=== PATIENT | female | born 1930 | race Caucasian/White ===

== ENCOUNTER 2016-08-09 14:49 | Inpatient (IN) ==
[2016-08-09 15:19] LABS: Basophils % 0.3 % (0.0-0.8); Eosinophils % 0.2 % (0.00-10.9); Hematocrit 35.8 VOL% (35.7-47.0); Hemoglobin 11.9 GM/DL (12.0-16.0); Immature Granulocytes % 0.5 %; Immature Granulocytes Absolute 0.03 #; Lymphocytes # 0.8 10*3/uL (1.4-4.0); Lymphocytes % 12.9 % (21.3-54.2); Mean Corpuscular HGB Conc 33.2 GM/DL (32-36); Mean Corpuscular Hemoglobin 30 PG (27-34); Mean Corpuscular Volume 90.2 FL (87-102); Mean Platelet Volume 9.5 FL (9.6-12.0); Monocytes # 0.2 10*3/uL (0.11-0.8); Monocytes % 3.5 % (1.7-12.7); Neutrophils % 82.6 % (38.7-73.9); Platelet Count 222 T/CUMM (130-400); Red Blood Count 3.97 MC/CUMM (3.8-5.5); Red Cell Distribution Width 16.8 % (9.3-17.3)
--- NOTE | 2016-08-09 15:34 | CT Report ---
Referring physician: Jessica Exam: CT brain without contrast Date: 08/09/2016 Comparison: None Reason: Alteration of consciousness Technique: Axial images of the head were obtained without the use of contrast. Total DLP was 942.40 mGy*cm. Findings: No hydrocephalus or midline shift is present. There is no evidence of an acute infarction, recent intracranial hemorrhage or abnormal mass effect. Diffuse atrophy and cerebral hypodensities. The osseous structures appear intact. Minimal mucosal thickening in the paranasal sinuses with fluid in the right mastoid air cells. Impression: No acute intracranial abnormality is identified. Diffuse atrophy and significant microvascular disease which could obscure age indeterminate ischemic infarction. Minimal sinusitis with nonspecific fluid in right mastoid air cells. The CT exam was performed using one or more of the following dose reduction techniques: Automated exposure control and adjustment of the mA and/or kV according to patient size. PROCEDURE INTERPRETED AT [facility] DEPARTMENT OF RADIOLOGY Final Report Signed by: Dr. Ariana Tesfaye
[2016-08-09 15:44] LABS: Alanine Aminotransferase 219 U/L (13-56); Albumin 3.6 G/DL (3.4-5.0); Alkaline Phosphatase 54 U/L (45-117); Aspartate Amino Transferase 128 U/L (0-37); Blood Urea Nitrogen 57 MG/DL (7-18); Calcium 8.5 MG/DL (8.5-10.1); Glucose 90 MG/DL (74-106); Magnesium 2.5 MG/DL (1.8-2.4); Osmolality,Calculated 290.7 MOS/KG (273-304); Potassium 4.1 MMOL/L (3.5-5.1); Sodium 138 MMOL/L (136-145); Total Protein 8.4 G/DL (6.4-8.3); Troponin I Only < 0.015 NG/ML (0.00-0.045)
--- NOTE | 2016-08-09 15:46 | XRay Report ---
XR chest 1V Indication: Altered mental status Comparison: Chest x-ray dated January 23, 2014 Technique: Single frontal view of the chest. Findings: The cardiomediastinal silhouette is stable in configuration. Heart appears mildly prominent. Chronic/emphysematous change of the lungs suggested. Diffuse osteopenia. Plate and screw fixation of proximal left humerus. Vertebroplasty change near the thoracic/lumbar junction. S-shaped curvature of the spine. IMPRESSION: As above. PROCEDURE INTERPRETED AT [facility] DEPARTMENT OF RADIOLOGY Final Report Signed by: Dr Charli Cantor
[2016-08-09 15:54] LABS: INR 1.1; PT Patient Result 12.2 SECS
[2016-08-09 16:05] LABS: Apearance,Urine Slightly Hazy (Clear); Bilirubin,Urine Negative (Negative); Blood, Urine Large mg/dL (Negative); Glucose,Urine (UA) Negative (Negative); Hyaline Casts,Urine 2 /LPF (0-3); Ketones,Urine 5 mg/dL (Negative); Mucus,Urine Occasional /LPF (Occasional); Nitrite,Urine Negative (Negative); Protein,Urine 30 MG/DL; RBC,Urine 497 /HPF (0-4); Renal Epithelial Cells,Urine Occasional /HPF (<1); Squamous Epithelial Cell,Urine Occasional /HPF (0-10); Urine Color Yellow (Yellow); Urine Specific Gravity 1.016 (1.001-1.035); Urine Urobilinogen < 2.0 EU/DL (0.2-1.0); WBC,Urine 8 /HPF (0-6)
[2016-08-09] MEDS ORDERED: SODIUM CHLORIDE 0.9% 500 ML IV STA (17:04)
--- NOTE | 2016-08-09 17:08 | Emergency Department Note ---
Krystin Woodard Rolonda, am scribing for, and in the presence of, Emory Lopez MD 16:00. Jessica Woodard Phillip K, MD, personally performed the services described in this documentation, ascribed by Naresh Mcclelland in my presence, and it is both accurate and complete [id number] . Arrival - Arrival Chief Complaint: Altered Mental Status Stated Complaint: fell yesterday/confusion/staggering/pain in back ED Nursing Triage Note: Family reports pt has been having confusion, unsteady gait, dizziness, and fall yesterday. Mode of Arrival: Wheelchair Limitations: No Limitations Source: Patient, Family (grandaughter), Old Records Reviewed, RN Notes Reviewed - History of Present Illness HPI Narrative: Pt is an 83 y/o female who was brought to the ED via wheelchair by her grandaughter for further evaluation of AMS with an onset of x1 day. Granddaughter stated that pt has "been out of it and confused" since she fell x1 day ago. She states that pt fell onto the cement after losing her balance. Granddaughter has no knowledge if pt had LOC due to hitting her head after the fall because no one was around. She states that she was going to transport pt to ED yesterday but did not because the home health nurse had arrived. Granddaughter took pt to Urologist who works under Dr. Hurd today but was transferred here. No other complaint/pain in ED. Onset (ago): day(s) Consistency: constant Severity: mild Severity scale (1-10): 3 Allergies/Adverse Reactions: Allergies Allergy/AdvReac Type Severity Reaction Status Date / Time No Known Allergies Allergy Verified 08/09/16 14:54 Review of System - Review of System 12 point system: reviewed and no additional remarkable complaints except as stated - Review of System Eyes: Absent: pain Respiratory: Absent: cough, respiratory distress Cardiovascular: Absent: chest pain Gastrointestinal: Absent: abdominal pain, nausea, vomiting Musculoskeletal: Absent: arm pain, leg pain, neck pain Neurological: Absent: headache Medical,Surgical,& Family Hx - Medical History Cardio: History of: Cardiac Dysrhythmia (Tachycardia), Hypertension Respiratory: History of: COPD Musculoskeletal: History of: Musculoskeletal Problems (left shoulder fx) Hematology: History of: Anemia - Surgical History HEENT Surgeries: Surgical HX of: Eye Surgery - Social History Smoking Status: Never smoker Exam Vital Signs: Vital Signs Temperature 98.4 F 08/09/16 14:51 Pulse Rate 81 08/09/16 16:07 Respiratory Rate 18 08/09/16 16:07 Blood Pressure 183/60 08/09/16 16:07 O2 Sat by Pulse Oximetry 99 08/09/16 14:51 - General General appearance: alert, in no apparent distress - Head Head exam: Present: atraumatic, normocephalic - Eye Eye exam: Present: normal appearance, PERRL, EOMI - ENT ENT exam: Present: mucous membranes moist. Absent: mucous membranes dry - Neck Neck exam: Present: full ROM. Absent: tenderness - Chest Chest inspection: Present: symmetric chest wall rise. Absent: tenderness - Respiratory Respiratory exam: Present: normal lung sounds bilaterally. Absent: rales - Cardiovascular Cardiovascular exam: Present: regular rate, normal rhythm, normal heart sounds. Absent: bradycardia - Abdominal Exam Abdominal exam: Present: soft, normal bowel sounds. Absent: tenderness - Extremities Exam Extremities exam: Present: full ROM. Absent: tenderness - Back Exam Back exam: Present: full ROM. Absent: tenderness - Neurological Exam Neurological exam: Present: alert, oriented X3, CN II-XII intact - Psychiatric Psychiatric exam: Present: normal affect, normal mood - Skin Skin exam: Present: warm, dry, intact, normal color. Absent: rash Course Course Narrative: Patient discussed with the hospitalist. Results - Labs CBC & BMP: 08/09/16 15:04 08/09/16 15:04 Lab Results: I have reviewed the patients labs Labs: Laboratory Tests 08/09/16 08/09/16 08/09/16 15:04 15:04 15:04 WBC 6.0 RBC 3.97 Hgb 11.9 L Hct 35.8 Plt Count 222 MPV 9.5 L Neut % (Auto) 82.6 H Lymph % (Auto) 12.9 L Lymph # (Auto) 0.8 L INR 1.1 PT Patient/Control Mix 12.2 Sodium 138 Potassium 4.1 Chloride 113 H Carbon Dioxide 17 L BUN 57 H Creatinine 1.60 H GFR Calculation 24 BUN/Creatinine Ratio 35.00 H Magnesium 2.5 H AST 128 H ALT 219 H Total Protein 8.4 H Globulin 4.8 H Albumin/Globulin Ratio 0.7 L Laboratory Tests 08/09/16 15:44 Urine pH 5.0 Ur Specific [place] 1.016 Urine Protein 30 Urine Glucose (UA) Negative Urine Ketones 5 Urine Blood Large Urine Nitrate Negative Urine Bilirubin Negative Urine Urobilinogen < 2.0 H Urine Leukocytes Negative Urine RBC 497 Urine WBC 8 Ur Squamous Epith Cells Occasional Ur Renal Epithelial Cell Occasional Hyaline Casts 2 Urine Mucus Occasional Urine Yeast (Budding) Occasional Ur Culture Indicated? Results to follow - EKG EKG results: interpreted by ERMTevin, sinus rhythm (Old anterior septal VA) - Diagnostic Findings Procedure: Chest x-ray: report reviewed by me (COPD), CT: report reviewed by me (Head/Brain: No acute intracranial abnormality is identified. Diffuse atrophy and significant microvascular disease which could obscure age indeterminate ischemic infarction. Minimal sinusitis with nonspecific fluid in right mastoid air cells.), X-ray: report reviewed by me (Chest: The carsiomediastinal silhouette is stable in configuration. Heart appears midly prominent. Chronic/ emphy sematous change of the lungs suggested. Diffuse osteopenia. Plate and screw fixation of proximal left humerus. Vertebroplasty change near the thoracic /lumbar junction. S-shaped curvature of the spine.) Disposition Clinical Impression: Dehydration, Multiple falls, Confusion, Probable dementia Case discussed with: patient, patient's family Disposition: Still a Patient Condition: Guarded Additional Instructions: Admit to the hospitalist.
--- NOTE | 2016-08-09 18:12 | Hospitalist History & Physical ---
Assessment and Plan (1) Confusion Status: Acute Assessment and plan: The family reports that confusion is not the patient's baseline. They report that the onset of confusion started immediately after the fall. CT of the brain was essentially unremarkable; however it did note a possible remote infarction. Urinalysis was essentially negative for the present of infection. We will monitor this patient closely. We will review her medications for any possible agents that may attribute to confusion. Current Visit: Yes (2) Dehydration Status: Acute Assessment and plan: The patient reports a decrease in p.o. intake. She reports that she has been able to drink but not a whole lot. BUN was noted at 57 and creatinine at 1.60 we will gently rehydrate to replace the volume deficit. Current Visit: Yes (3) Multiple falls Status: Acute Assessment and plan: Family reports a increase in falls in recent weeks. I am concerned regarding the patient's therapy. Not sure what her actual mental status baseline is. We will consult physical therapy and Occupational Therapy to evaluate. The patient may benefit from rehab placement at discharge. Current Visit: Yes History of Present Illness Chief complaint: Altered mental status History of present illness: This is a very pleasant 85-year-old female that presented to the ED at [facility] this afternoon for the evaluation of altered mental status. The patient has a very impressive medical history significant for: Hypertension, chronic obstructive pulmonary disease, anemia, osteoporosis, left shoulder fracture and multiple falls. The patient reports surgical history significant for: Vertebroplasty and plate and screw fixation of the proximal left humerus. The patient is very hard of hearing. She is pleasantly confused. Her daughter is present at bedside she was service historian. Per daughter report, the patient has experienced a noted change in her mental status. They noticed the change initially on yesterday. Apparently, the patient sustained an unwitnessed fall. The daughter was unsure if the patient had an actual loss of consciousness, however they noted that the patient has been confused since the occurrence. They report that the patient was found on the semen after apparently losing her balance. They contemplated on bringing the patient to the ED on yesterday however the home health nurse arrived to their home in she evaluated the patient there. Today, the patient was seen by her urologist, evaluated, and advised to present to the ED for further evaluation. The patient was assessed at the time of ED presentation. The patient's blood pressure was grossly elevated at 183/60. Labs were obtained; complete blood cell count reported her WBCs at 6.0, hemoglobin 11.9, hematocrit 35.8, and platelet count of 222. Coagulation panel reported her INR at 1.1 and PT of 12.2 chemistry panel reported her sodium at 138, potassium is 4.1, chloride 113 , carbon dioxide is 17, BUN of 57, creatinine at 1.60 , glucose at 90, magnesium at 2.5, AST 128, ALT at 219, alkaline phosphatase of 54, and albumin at 3.6. Cardiac enzymes reported a troponin at less than 0.015. Urinalysis reported a large amount of blood and urine urobilinogen at less than 2.0 and negative for leukocytes. Chest x-ray reported chronic/emphysematous changes of the lungs, diffuse osteopenia, S shaped curvature of the spine, plate and screw fixation of the proximal left humerus, vertebral plasty change near the thoracic lumbar junction. CT head/brain reported no acute intracranial abnormality, diffuse atrophy and significant microvascular disease which could obscure age indeterminate ischemic infarction, mild sinusitis with nonspecific fluid in the right mastoid air cells. After brief discussion with both Dr. Lopez and Dr. Guadarrama, the patient will be admitted to the hospitalist services for continuation of care Allergies Allergy/AdvReac Type Severity Reaction Status Date / Time No Known Allergies Allergy Verified 08/09/16 14:54 Medical,Surgical,& Family Hx - Medical History Cardio: History of: Cardiac Dysrhythmia (Tachycardia), Hypertension Respiratory: History of: COPD Musculoskeletal: History of: Musculoskeletal Problems (left shoulder fx) Hematology: History of: Anemia - Surgical History HEENT Surgeries: Surgical HX of: Eye Surgery - Social History Smoking Status: Never smoker 12 point system: reviewed and no additional remarkable complaints except as stated Exam - Constitutional Vitals: Period Temp Pulse Resp BP Sys/Barrientos Pulse Ox Last 24 Hr 98.4 F 81-81 16-18 183-183/60-60 99 General appearance: normal weight, no acute distress - Head Head exam: Present: normal inspection, normocephalic. Absent: atraumatic - Eye Eye exam: Present: EOMI, conjunctival injection Pupils: Present: ONOFRE, normal accommodation - ENT ENT exam: Present: normal exam, normal external ear exam, normal oropharynx - Neck Neck exam: Present: normal inspection - Respiratory Respiratory exam: Present: clear to auscultation bilaterally. Absent: rales, rhonchi, stridor - Cardiovascular Cardiovascular exam: Present: regular rate and rhythm. Absent: carotid bruit, diastolic murmur, gallop, tachycardia - GI/Abdominal GI/Abdominal exam: Present: normal bowel sounds, soft - Extremities Exam Extremities exam: Present: normal inspection, normal capillary refill, full ROM. Absent: edema - Back Exam Back exam: Present: normal inspection - Neurological Exam Neurological exam: Present: alert, altered - Psychiatric Psychiatric exam: Present: normal affect, normal mood - Skin Skin exam: Present: normal color, warm, dry Results - Labs CBC & BMP: 08/09/16 15:04 08/09/16 15:04 Lab Results: I have reviewed the past 24 hour labs
[2016-08-09] MEDS ORDERED: ONDANSETRON 4 MG/2 ML VIAL IV PRN (18:55)
[2016-08-09] MEDS: DOCUSATE SODIUM 100 MG CAPSULE PO SCH (21:14)
[2016-08-09] MEDS: ACETAMINOPHEN 325 MG TABLET PO PRN (21:14)
[2016-08-09] MEDS: ENOXAPARIN 30 MG/0.3 ML SYRINGE SUBCUT SCH (21:15)
[2016-08-10] MEDS: ACETAMINOPHEN 325 MG TABLET PO PRN ×2 (02:28→20:57)
[2016-08-10 05:49] LABS: Basophils % 0.2 % (0.0-0.8); Eosinophils % 0.4 % (0.00-10.9); Hematocrit 33.1 VOL% (35.7-47.0); Immature Granulocytes % 1.1 %; Immature Granulocytes Absolute 0.05 #; Lymphocytes % 21.7 % (21.3-54.2); Mean Corpuscular HGB Conc 33.2 GM/DL (32-36); Mean Corpuscular Hemoglobin 30 PG (27-34); Mean Corpuscular Volume 90.7 FL (87-102); Mean Platelet Volume 9.6 FL (9.6-12.0); Monocytes # 0.3 10*3/uL (0.11-0.8); Monocytes % 5.6 % (1.7-12.7); Neutrophils # 3.3 10*3/uL (1.4-7.4); Platelet Count 191 T/CUMM (130-400); Red Blood Count 3.65 MC/CUMM (3.8-5.5); Red Cell Distribution Width 16.7 % (9.3-17.3); White Blood Count 4.6 T/CUMM (4-12)
--- NOTE | 2016-08-10 05:58 | EKG Report ---
Stationary ECG Study [facility] ER Test Date: 08/09/2016 4:59:02 PM Pat Name: JB MOORE Department: Room: 333 Gender: F Sole Trimmer: : [id number] Requested by: Emory Self Order Number: [id number] Reading MD: SANTO RAMOS Intervals Burna Rate: 82 P: 82 IN: 195 QRS: 26 QRSD: 106 T: 83 QT: 380 QTc: 418 Interpretive Statements SINUS RHYTHM ANTEROSEPTAL MYOCARDIAL INFARCTION, OF INDETERMINATE AGE Electronically Signed On 08-10-16 17:38:25 CDT by SANTO RAMOS [email or web address]
[2016-08-10 06:33] LABS: Alanine Aminotransferase 172 U/L (13-56); Albumin 2.9 G/DL (3.4-5.0); Alkaline Phosphatase 45 U/L (45-117); Aspartate Amino Transferase 88 U/L (0-37); Bilirubin,Total < 0.39 MG/DL (0.2-1.0); Blood Urea Nitrogen 37 MG/DL (7-18); Calcium 7.9 MG/DL (8.5-10.1); Glucose 95 MG/DL (74-106); Magnesium 2.2 MG/DL (1.8-2.4); Potassium 3.9 MMOL/L (3.5-5.1); Sodium 143 MMOL/L (136-145); Total Protein 7.2 G/DL (6.4-8.3)
[2016-08-10] MEDS: SODIUM CHLORIDE 0.9% 1,000 ML IV SCH ×2 (06:48→06:49)
[2016-08-10 06:50] LABS: Blood Urea Nitrogen 39 MG/DL (7-18); Glucose 96 MG/DL (74-106); Magnesium 2.3 MG/DL (1.8-2.4); Osmolality,Calculated 294.8 MOS/KG (273-304); Potassium 3.9 MMOL/L (3.5-5.1); Sodium 144 MMOL/L (136-145); Troponin I Only < 0.015 NG/ML (0.00-0.045)
[2016-08-10] MEDS: PANTOPRAZOLE 40 MG TABLET PO SCH (09:13)
[2016-08-10] MEDS: DOCUSATE SODIUM 100 MG CAPSULE PO SCH ×2 (09:13→20:57)
--- NOTE | 2016-08-10 13:38 | Hospitalist Progress Note ---
Assessment and Plan - Time spent with patient Time spent with patient: Greater than 30 minutes (1) Confusion Status: Acute Assessment and plan: Appears to be at baseline. No evidence of infection anywhere. We will obtain an MRI of her brain, carotid ultrasound and echocardiogram. Neurology was consulted. Patient will have to remain hospitalized until this is performed. Current Visit: Yes (2) Acute kidney injury Status: Acute Assessment and plan: Resolved. Current Visit: Yes (3) Multiple falls Status: Acute Assessment and plan: PT OT social work. Current Visit: Yes Hospitalist: Subjective Interval history: Patient is sitting up lucid and eating. She appears to be completely at baseline. She states she feels fine and there is nothing wrong. She is pleasant and laughing. Exam - Constitutional Vitals: Period Temp Pulse Resp BP Sys/Barrientos Pulse Ox Last 24 Hr 97.9 F-99.4 F 76-90 16-20 136-183/60-79 95-99 General appearance: no acute distress - Head Head exam: Present: normocephalic, atraumatic - Eye Eye exam: Present: EOMI Pupils: Present: ONOFRE - ENT ENT exam: Present: normal exam - Neck Neck exam: Present: normal inspection - Respiratory Respiratory exam: Present: clear to auscultation bilaterally. Absent: rhonchi, wheezes - Cardiovascular Cardiovascular exam: Present: regular rate and rhythm. Absent: gallop, rubs, systolic murmur - GI/Abdominal GI/Abdominal exam: Present: normal bowel sounds, soft. Absent: distended, firm , guarding, tenderness, rebound - Extremities Exam Extremities exam: Present: normal inspection. Absent: calf tenderness, edema Results - Labs CBC & BMP: 08/10/16 05:35 08/10/16 05:35 Lab Results: I have reviewed the past 24 hour labs
--- NOTE | 2016-08-10 14:57 | Ultrasound Report ---
Exam: Carotid ultrasound Date: 08/10/2016 Comparison: None Technique: Duplex scans of the carotid and vertebral arteries using B-mode/Nava scale imaging and Doppler spectral analysis and color flow. Reason: Alteration of consciousness Findings: The right ICA measures 4.1 mm in diameter and the left ICA measures 4.9 mm in diameter. Color-flow documented in the visualized arteries. The peak systolic velocities are as follows: Right CCA: 52.0 cm/s Right ICA: 74.7 cm/s Right ECA: 76.7 cm/s Left CCA: 76.8 cm/s Left ICA: 91.8 cm/s Left ECA: 97.6 cm/s The peak systolic ICA/CCA velocity ratios are as follows: 1.4 on the right and 1.2 on the left. Antegrade flow is present in both vertebral arteries. Impression:[Less than 50% stenosis in both internal carotid arteries with heterogeneous plaque formation. Antegrade flow in both vertebral arteries.] The Society of Radiologists in Ultrasound consensus conference criteria was used. The Ultrasound images were captured and stored. PROCEDURE INTERPRETED AT [facility] DEPARTMENT OF RADIOLOGY Final Report Signed by: Dr. Ariana Tesfaye
--- NOTE | 2016-08-10 15:22 | ECHO Report ---
Sri Steward Exam Date: 08/10/2016 14:09 Referring Physician: Technologist: Ashley Mason Age: 85 Ht (in): 65 Wt (lb): 88 Gender: F Exam Location: [facility] Echo Indications: anemia, HTN, COPD, confusion, dehydration, multi falls, mental status, Hx. cardiac dysrhythmias BP: 153 / 74 HR: 78 Rhythm: Sinus Technical Quality: Good IMPRESSIONS EF 55-60 %. Grade I/IV diastolic dysfunction (abnormal relaxation filling pattern), normal to mildly elevated filling pressures. Normal right ventricular size. The right atrium is mildly enlarged. Moderately increased left atrial size. Mitral valve sclerosis. Mild mitral valve regurgitation. Aortic valve sclerosis. Mild aortic valve regurgitation. Moderate tricuspid valve regurgitation. PAP45 mmHG. Morphologically normal pulmonic valve. No pericardial effusion. Normal size aortic root and proximal ascending aorta .No LV or LA clot seen. MEASUREMENTS (Male / Female) Normal Values 2D ECHO LV Diastolic Diameter PLAX 3.9 cm 4.2 - 5.9 / 3.9 - 5.3 cm LV Systolic Diameter PLAX 1.9 cm LV Fractional Shortening PLAX 51.7 % IVS Diastolic Thickness 1.2 cm 0.6 - 1.0 / 0.6 - 0.9 cm LVPW Diastolic Thickness 0.9 cm 0.6 - 1.0 / 0.6 - 0.9 cm RV Internal Dim ED PLAX 2.6 cm Aortic Root Diameter 2.6 cm LA Systolic Diameter LX 3.0 cm 3.0 - 4.0 / 2.7 - 3.8 cm DOPPLER TR Peak Velocity 292.0 cm/s TR Peak Gradient 34.1 mmHg FINDINGS Left Ventricle EF 55-60 %. Grade I/IV diastolic dysfunction (abnormal relaxation filling pattern), normal to mildly elevated filling pressures. Right Ventricle Normal right ventricular size. Right Atrium The right atrium is mildly enlarged. Left Atrium Moderately increased left atrial size. Mitral Valve Mitral valve sclerosis. Mild mitral valve regurgitation. Aortic Valve Aortic valve sclerosis. Mild aortic valve regurgitation. Tricuspid Valve Morphologically normal tricuspid valve. Moderate tricuspid valve regurgitation. PAP45 mmHG. Pulmonic Valve Morphologically normal pulmonic valve. Pericardium No pericardial effusion. Aorta Normal size aortic root and proximal ascending aorta. Antwon Ghotra (Electronically Signed) Final Date: 10 August 2016 15:21
--- NOTE | 2016-08-10 15:30 | Neurology Consult Note ---
History of Present Illness History of present illness: 85-year-old right-handed white lady with past medical history significant for hypertension, COPD, anemia, osteoporosis, left shoulder fracture and multiple falls presented to the ED at [facility] yesterday afternoon for the evaluation of altered mental status. The patient had Vertebroplasty and plate and screw fixation of the proximal left humerus in the past. The patient is very hard of hearing. Vision is not a very good historian. History basically obtained from the chart. Per chart and from report, the patient has experienced a noted change in her mental status. They noticed the change initially on yesterday. Apparently, the patient sustained an unwitnessed fall. The daughter was unsure if the patient had an actual loss of consciousness, however they noted that the patient has been confused since the occurrence. CT head/brain reported no acute intracranial abnormality, diffuse atrophy and significant microvascular disease. Carotid Dopplers is unremarkable. Echocardiogram looks okay. Ejection fraction is 55-60%. Allergies Allergy/AdvReac Type Severity Reaction Status Date / Time No Known Allergies Allergy Verified 08/09/16 14:54 ROS unobtainable: due to mental status Medical,Surgical,& Family Hx - Medical History Cardio: History of: Cardiac Dysrhythmia (Tachycardia), Hypertension Respiratory: History of: COPD Musculoskeletal: History of: Musculoskeletal Problems (left shoulder fx) Hematology: History of: Anemia - Surgical History HEENT Surgeries: Surgical HX of: Eye Surgery - Social History Smoking Status: Never smoker Frequency of Alcohol Use: None Type of Drug Use: None Exam - Constitutional Vitals: Period Temp Pulse Resp BP Sys/Barrientos Pulse Ox Last 24 Hr 97.9 F-99.4 F 76-90 16-20 136-183/60-79 95-98 Exam: GENERAL: Patient is in no acute distress. NECK: Neck is supple. There is no JVD. No carotid bruits present. No thyroid masses. CVS: First and second heart sounds are normal. There is no S3 present. Regular rate and rhythm. RESPIRATORY: Lungs are clear to auscultation without any rales or rhonchi. ABDOMEN: Soft and non-tender. Bowel sounds are present. There is no hepatosplenomegaly. EXT: There is no palpable edema. Peripheral pulses are present. Skin: No rashes Central Nervous system: General: Alert, awake Speech: Fluent Comprehension: Intact and normal Facial expressions: Normal Cranial Nerves: CN1/Olfactory: Normal CN II/ Optic: Normal, Visual [place] unreliable CN III, and : ONOFRE & EOMI CN V: Normal & intact CN VII: face is symmetric CNVIII: Very hard of hearing CN XI/X/XI/XII: Intact and Normal Motor: Bulk and Tone is normal. Strength apparently symmetrical Sensory: Unreliable Reflexes: 1+ and symmetrical Cerebellar function: Slow finger to nose and heel to allen testing. Toes: Equivocal Gait: Not tested at this time Results - Labs CBC & BMP: 08/10/16 05:35 08/10/16 05:35 Assessment and Plan (1) Altered mental status Status: Acute Assessment and plan: Her baseline mental status is not known to anyone. Patient is often confused at this point. Her LFTs and elect lites were quite off but they are coming back to normal. This could very well be due to metabolic encephalopathy Agree with MR of the brain EEG Continue Lovenox for now Thank you for the consult Current Visit: Yes
[2016-08-10] MEDS: ENOXAPARIN 30 MG/0.3 ML SYRINGE SUBCUT SCH (20:57)
[2016-08-11] MEDS: SODIUM CHLORIDE 0.9% 1,000 ML IV SCH ×2 (00:32→09:44)
[2016-08-11] MEDS: ACETAMINOPHEN 325 MG TABLET PO PRN (06:33)
--- NOTE | 2016-08-11 08:57 | Neurology Progress Note ---
Neurology - PN : Subjective Interval history: Patient seems to be doing a little better. More alert and awake and following commands. No new problems reported. EEG is pending Exam (Progress Note) - Constitutional Vitals: Period Temp Pulse Resp BP Sys/Barrientos Pulse Ox Last 24 Hr 97.6 F-99.0 F 78-120 14-20 129-189/68-98 95-99 Exam: GENERAL: Patient is in no acute distress. NECK: Neck is supple. There is no JVD. No carotid bruits present. No thyroid masses. CVS: First and second heart sounds are normal. There is no S3 present. Regular rate and rhythm. RESPIRATORY: Lungs are clear to auscultation without any rales or rhonchi. ABDOMEN: Soft and non-tender. Bowel sounds are present. There is no hepatosplenomegaly. EXT: There is no palpable edema. Peripheral pulses are present. Skin: No rashes Central Nervous system: General: Alert, awake Speech: Fluent Comprehension: Intact and normal Facial expressions: Normal Cranial Nerves: CN1/Olfactory: Normal CN II/ Optic: Normal, Visual [place] unreliable CN III, and : ONOFRE & EOMI CN V: Normal & intact CN VII: face is symmetric CNVIII: Very hard of hearing CN XI/X/XI/XII: Intact and Normal Motor: Bulk and Tone is normal. Strength apparently symmetrical Sensory: Unreliable Reflexes: 1+ and symmetrical Cerebellar function: Slow finger to nose and heel to allen testing. Toes: Equivocal Gait: Not tested at this time Results - Labs CBC & BMP: 08/10/16 05:35 08/10/16 05:35 Assessment and Plan (1) Altered mental status Status: Acute Assessment and plan: This is likely due to metabolic encephalopathy MRI of the brain and EEG is still pending. Continue present management Current Visit: Yes
[2016-08-11] MEDS: DOCUSATE SODIUM 100 MG CAPSULE PO SCH ×2 (09:05→20:59)
[2016-08-11] MEDS: PANTOPRAZOLE 40 MG TABLET PO SCH (09:05)
--- NOTE | 2016-08-11 11:22 | Physician Query Form ---
CLICK EDIT DOCUMENT TO SELECT QUERY ANSWER --> OK --> SIGN Rosa Donnelly RN Clinical Tray Drier W) [phone] (f) [phone] [email or web address]: Make your selection(s) from the choices in EACH section by typing an "x" and enter comments in the comment section. Please use your independent medical judgment in providing your response. This request does not imply that any particular answer is desired or expected. CLINICAL INDICATORS: (Providers should not edit this section) Based on documentation of "Acute dehydration" Creatinine from 1.6 to 1.1 GFR from 24 to 37. Treated with NS bolus followed by NS infusion. Clarify which of the following most accurately represents the patient's renal status: (x ) Acute kidney injury (non-traumatic) ( ) Acute renal failure ( ) Acute renal failure with underlying Chronic Kidney Disease (CKD) - please provide stage below ( ) Acute renal failure with pathological renal lesion ( ) Acute renal failure with necrosis ( ) tubular ( ) medullary ( ) cortical ( ) CKD - please provide stage below ( ) End Stage Renal Disease ( ) Acute interstitial nephritis ( ) Hepatorenal syndrome ( ) Other, please specify: ( ) Clinically unable to determine Chronic Kidney Disease Stages Source: National Kidney Disease Foundation ( ) Stage I (eGFR > or = 90) ( ) Stage II (eGFR 60 - 89) ( ) Stage III (eGFR 30 - 59) ( ) Stage IV (eGFR 15 - 29) ( ) Stage V (eGFR < 15 or dialysis) COMMENTS: PLEASE ALSO DOCUMENT RESPONSE IN PROGRESS NOTES AND/OR DISCHARGE SUMMARY Use of terms such as suspected, likely, or probable (associated with a specific diagnosis that is being evaluated, monitored, or treated as if it exists) are acceptable and can be restated in the discharge summary if not ruled out. MTDD
--- NOTE | 2016-08-11 12:20 | Magnetic Resonance Report ---
History: Acute onset confusion. Mental status changes. Recent falls Date: 08/11/2016 Study: MRI brain without IV contrast Comparison exam: CT head without contrast August 09, 2016 The brain was imaged in 3 planes on the 1.2 Livia open magnet without IV contrast, to include diffusion, T2, FLAIR, gradient echo, and T1-weighted sequences. The ventricles are midline in position without evidence of hydrocephalus. There is no Chiari I malformation. There is no gross pituitary mass. There is a punctate less than 5 mm focus of restricted diffusion in the right frontal periventricular white matter compatible with an area of recent ischemia between 6 hours and 4 days old. No evidence of acute ischemia is seen otherwise. While there is no acute hemorrhage, there are some punctate foci of hypointense gradient echo signal in the right globus pallidus and putamen region suggesting hemosiderin from remote areas of hemorrhage. There is a moderate to large amount of patchy increased FLAIR and T2 signal in the periventricular white matter, haas radiata, and centrum semiovale bilaterally compatible with changes of small vessel disease. Changes of small vessel disease also extend into the lenticular nuclei. There is no area of abnormal mass effect within the brain. There is no extra-axial hematoma. There is a normal flow void in the superior sagittal sinus. There is no gross flow abnormality in the [place] area. There is some mild lobular mucosal thickening inferiorly in either maxillary sinus. Remote post cataract surgery changes of either globe are present. Impression: Punctate focus of acute ischemia in the right frontal periventricular white matter. No acute hemorrhage. 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 Nereyda Briceno
--- NOTE | 2016-08-11 13:30 | Hospitalist Progress Note ---
Assessment and Plan - Time spent with patient Time spent with patient: Greater than 30 minutes (1) CVA (cerebral vascular accident) Status: Acute Assessment and plan: Neurology is on board. Continue current management. Will obtain a lipid panel. Current Visit: Yes (2) Acute kidney injury Status: Acute Assessment and plan: Resolved. At baseline. Current Visit: Yes (3) Multiple falls Status: Acute Assessment and plan: PT OT social work. Current Visit: Yes Hospitalist: Subjective Interval history: MRI reveals acute areas of punctate infarction. Patient is otherwise doing fine and has no complaints. Exam - Constitutional Vitals: Period Temp Pulse Resp BP Sys/Barrientos Pulse Ox Last 24 Hr 97.6 F-99.0 F 79-120 14-20 129-189/68-98 96-99 General appearance: no acute distress - Head Head exam: Present: normocephalic, atraumatic - Eye Eye exam: Present: EOMI Pupils: Present: ONOFRE - ENT ENT exam: Present: normal exam - Neck Neck exam: Present: normal inspection - Respiratory Respiratory exam: Present: clear to auscultation bilaterally. Absent: rhonchi, wheezes - Cardiovascular Cardiovascular exam: Present: regular rate and rhythm. Absent: gallop, rubs, systolic murmur - GI/Abdominal GI/Abdominal exam: Present: normal bowel sounds, soft. Absent: distended, firm , guarding, tenderness, rebound - Extremities Exam Extremities exam: Present: normal inspection. Absent: calf tenderness, edema Results - Labs CBC & BMP: 08/10/16 05:35 08/10/16 05:35 Lab Results: I have reviewed the past 24 hour labs
[2016-08-11 17:34] LABS: Risk Ratio 2.45
[2016-08-11] MEDS: ENOXAPARIN 30 MG/0.3 ML SYRINGE SUBCUT SCH (20:59)
[2016-08-12 07:10] LABS: Risk Ratio 2.56; VLDL CHOLESTEROL 26.6 MG/DL
[2016-08-12] MEDS: PANTOPRAZOLE 40 MG TABLET PO SCH (08:41)
[2016-08-12] MEDS: DOCUSATE SODIUM 100 MG CAPSULE PO SCH (08:41)
[2016-08-12] MEDS: SODIUM CHLORIDE 0.9% 1,000 ML IV SCH (10:43)
--- NOTE | 2016-08-12 11:57 | Hospitalist Progress Note ---
Assessment and Plan - Time spent with patient Time spent with patient: Greater than 30 minutes (1) CVA (cerebral vascular accident) Status: Acute Assessment and plan: Neurology is on board. Start Aspirin and Lipitor. Current Visit: Yes (2) Acute kidney injury Status: Acute Assessment and plan: Resolved. At baseline. Current Visit: Yes (3) Multiple falls Status: Acute Assessment and plan: PT OT social work. Current Visit: Yes Hospitalist: Subjective Interval history: No complaints or overnight events. Exam - Constitutional Vitals: Period Temp Pulse Resp BP Sys/Barrientos Pulse Ox Last 24 Hr 97.9 F-99.1 F 100-115 16-18 127-151/66-87 94-98 General appearance: no acute distress - Head Head exam: Present: normocephalic, atraumatic - Eye Eye exam: Present: EOMI Pupils: Present: ONOFRE - ENT ENT exam: Present: normal exam - Neck Neck exam: Present: normal inspection - Respiratory Respiratory exam: Present: clear to auscultation bilaterally. Absent: rhonchi, wheezes - Cardiovascular Cardiovascular exam: Present: regular rate and rhythm. Absent: gallop, rubs, systolic murmur - GI/Abdominal GI/Abdominal exam: Present: normal bowel sounds, soft. Absent: distended, firm , guarding, tenderness, rebound - Extremities Exam Extremities exam: Present: normal inspection. Absent: calf tenderness, edema Results - Labs CBC & BMP: 08/10/16 05:35 08/10/16 05:35 Lab Results: I have reviewed the past 24 hour labs
[2016-08-12] MEDS ORDERED: ASPIRIN EC 81 MG TABLET PO SCH (12:30)
--- NOTE | 2016-08-12 13:24 | Discharge Summary ---
Hospital Course - Hospital Course Hospital Course: Ms. Steward was admitted for evaluation of altered mental status. By admission she had returned to normal and a TIA workup was initiated. This included an MRI, echocardiogram and carotid ultrasound. Echocardiogram and carotid ultrasound was unremarkable and the MRI revealed a punctate focus of acute infarct in the right frontal periventricular white matter. Neurology was not available to evaluate the patient post MRI and the patient will have follow- up as an outpatient. She will be given a statin and aspirin in the meantime. By discharge she had met maximum benefit of hospitalization. I spent 38 minutes coordinating this discharge. - Time spent with patient Time with patient DS: Greater than 30 minutes Diagnosis - Discharge Diagnosis (1) CVA (cerebral vascular accident) Status: Acute (2) Acute kidney injury Status: Acute (3) Multiple falls Status: Acute Specialty Discharge - Follow Up or Referrals Follow up with: Sergey Curran MD [Physician] - 2 Weeks (Please call office for 2 week follow up Thank you) Discharge Plan - Discharge Data Disposition: Disch To Home/Self Care Condition at Discharge: Stable Discharge Diet: advance to your usual diet - Discharge Medications New Atorvastatin [Lipitor] 40 mg PO BEDTIME #30 tablet Aspirin EC Tab 81 mg PO DAILY #30 tablet - Follow Up or Referral Follow Up: Sergey Curran MD [Physician] - 2 Weeks (Please call office for 2 week follow up Thank you) - Forms/Instructions Instructions: Dehydration (DC), Acute Kidney Injury (DC), Fall Prevention for Older Adults (GEN) Exam - Constitutional Vitals: Period Temp Pulse Resp BP Sys/Barrientos Pulse Ox Last 24 Hr 97.9 F-99.1 F 100-115 16-18 127-151/66-87 94-98 General appearance: normal weight, no acute distress - Head Head exam: Present: normal inspection, normocephalic, atraumatic - Eye Eye exam: Present: EOMI Pupils: Present: ONOFRE - ENT ENT exam: Present: normal exam - Neck Neck exam: Present: normal inspection - Respiratory Respiratory exam: Present: clear to auscultation bilaterally. Absent: accessory muscle use, prolonged expiratory phase, wheezes - Cardiovascular Cardiovascular exam: Present: regular rate and rhythm. Absent: bradycardia, irregular rhythm, systolic murmur - GI/Abdominal GI/Abdominal exam: Present: normal bowel sounds. Absent: ascites, hypoactive bowel sounds, tenderness - Extremities Exam Extremities exam: Present: normal inspection Discharge Results Labs on day of discharge: Labs from last 24 hours 08/12/16 08/11/16 06:06 16:43 Triglycerides 133 200 H Cholesterol 133 164 LDL Cholesterol 61.0 83.0 VLDL Cholesterol 26.6 40.0 HDL Cholesterol 52 67 H Heart Disease Risk Ratio 2.56 2.45 DS: Provider Date of admission: 08/09/16 17:59 Primary care physician: . No PCP Attending physician on admission: Mor Jean MD Consults: 08/09/16 18:55 Consult to Physician [CONS] Routine Comment: Consulting Provider: Sergey Curran Consulting Provider Notified: Yes When should Consulting Provider be notified: Now Person Notified: Dr. Curran Date Notified: 08/09/16 Time Notified: 19:25 Consult Notification Comment: suzanne called with consult and room number 08/09/16 18:56 Consult to Case Mgmt/Social Srvs [CONS] Routine Reason for Case Mgmt/Social Srvs: Discharge Planning Consult to Occupational Therapy [CONS] Routine Reason for Occupational Therapy: Evaluate and Treat Consult to Physical Therapy [CONS] Routine Reason for Physical Therapy: Evaluate and Treat 08/09/16 19:08 Consult to Dietitian [CONS] Routine Reason for Dietitian: Dietary Consult Consult Comment: recent weight loss Consult to Pastoral Services [CONS] Routine Comment: Pastoral Screen: Request Restrictive Preparation Operator Visit Pastoral Screen Source of Request: Family Discharging clinician: Radha Jarvis MD Expected date of discharge: 08/12/16
[2016-08-12 15:49] VITALS: BP 156/100
[2016-08-12] MEDS ORDERED: ATORVASTATIN 40 MG TABLET PO SCH (21:00)
--- NOTE | 2016-08-31 17:06 | Electroencephalogram ---
HISTORY: An 85 years old female with a history of dehydration and change in mental status. INTRODUCTION: A digital EEG was performed using the standard 10/20 system of electrode placement wit h one channel of EKG monitoring. Photic stimulation was performed. DESCRIPTION OF RECORD: The background is somewhat disorganized, consists of 6 to 7 hertz, moderate a mplitude, bilateral symmetrical rhythm. Photic stimulation elicits a driving response at intermediat e flash frequencies. Hyperventilation was not performed. There are no focal, sharp wave, spike and wave activity seen. Heart rate is 96 beats per minute. IMPRESSION: ABNORMAL EEG DUE TO GENERALIZED SLOWING. CLINICAL CORRELATION: This record is supportive of mild to moderate encephalopathy which could be se condary to postictal state, post-hypoxic state, metabolic disorder, diffuse WEEDER insult or increased i ntracranial pressure. No epileptiform/seizure activity seen. Clinical correlation is suggested.
== END 2016-08-12 16:03 | disposition home health service (06) | DRG 64 ==
LOC: N.ED 14:49 → N.EDINP 17:59 → SUATTDRO 17:59 → N.3E 18:35
PROVIDERS: ADMIT Family Medicine; ATTEND Internal Medicine

== ENCOUNTER 2018-03-10 06:26 | Inpatient (IN) ==
[2018-03-10] MEDS ORDERED: DILTIAZEM 50 MG/10 ML VIAL IV STA ×2 (06:51→08:24)
[2018-03-10] MEDS: dilTIAZem Drip 125 MG/125 ML PREMIX IV SCH (07:13)
[2018-03-10 07:40] LABS: Basophils % 0.2 % (0.0-0.8); Eosinophils % 0.1 % (0.00-10.9); Hematocrit 47.3 VOL% (35.7-47.0); Hemoglobin 14.7 GM/DL (12.0-16.0); Immature Granulocytes % 1.1 %; Immature Granulocytes Absolute 0.11 #; Lymphocytes # 0.4 10*3/uL (1.4-4.0); Lymphocytes % 4.3 % (21.3-54.2); Mean Corpuscular HGB Conc 31.1 GM/DL (32-36); Mean Corpuscular Hemoglobin 27 PG (27-34); Mean Corpuscular Volume 86.5 FL (87-102); Mean Platelet Volume 9.8 FL (9.6-12.0); Monocytes # 0.4 10*3/uL (0.11-0.8); Monocytes % 4.3 % (1.7-12.7); Neutrophils # 9.1 10*3/uL (1.4-7.4); Platelet Count 268 T/CUMM (130-400); Red Blood Count 5.47 MC/CUMM (3.8-5.5); Red Cell Distribution Width 14.7 % (9.3-17.3); White Blood Count 10.1 T/CUMM (4-12)
[2018-03-10 08:04] LABS: Alanine Aminotransferase 13 U/L (13-56); Albumin 3.1 G/DL (3.4-5.0); Alkaline Phosphatase 76 U/L (45-117); Aspartate Amino Transferase 17 U/L (0-37); Bilirubin,Total < 0.39 MG/DL (0.2-1.0); Blood Urea Nitrogen 37 MG/DL (7-18); Calcium 8.9 MG/DL (8.5-10.1); Glucose 195 MG/DL (74-106); Potassium 3.7 MMOL/L (3.5-5.1); Sodium 136 MMOL/L (136-145); Total Protein 9.8 G/DL (6.4-8.3)
[2018-03-10 08:16] LABS: Lymphocytes 9 % (20-55); Segmented Neutrophils 89 % (50-85); Total Cells Counted 100
[2018-03-10 08:17] LABS: Hypochromasia 1+; Platelet Estimate Normal
[2018-03-10 08:23] LABS: Amorphous Crystals,Urine Occasional /HPF (Few); Apearance,Urine CLOUDY (Clear); Bacteria,Urine Moderate /HPF (Few); Bilirubin,Urine Negative (Negative); Blood, Urine Negative (Negative); Glucose,Urine (UA) Negative (Negative); Ketones,Urine 5 mg/dL (Negative); Mucus,Urine Occasional /LPF (Occasional); Nitrite,Urine Negative (Negative); Protein,Urine 100 MG/DL; RBC,Urine 1 /HPF (0-4); Squamous Epithelial Cell,Urine Occasional /HPF (0-10); Urine Color Yellow (Yellow); WBC,Urine 3 /HPF (0-6)
[2018-03-10] MEDS ORDERED: ACETAMINOPHEN 325 MG TABLET PO PRN (11:39)
[2018-03-10] MEDS ORDERED: ONDANSETRON 4 MG/2 ML VIAL IV PRN (11:39)
[2018-03-10] MEDS: SODIUM CHLORIDE 0.9% 1,000 ML IV SCH (13:23)
[2018-03-10] MEDS: POLYETHYLENE GLYCOL POWDER 17 GM PACK PO SCH (13:23)
[2018-03-10] MEDS: cefTRIAXone 1,000 MG in SYRINGE 1 EACH IV SCH (13:23)
[2018-03-10] MEDS ORDERED: CIPROFLOXACIN 0.3% OPH SOLN 2.5 ML BOTTLE LEFT EYE SCH (14:00)
[2018-03-10] MEDS: OFLOXACIN 0.3% OPH SOLN 10 ML BOTTLE LEFT EYE SCH ×2 (16:06→20:41)
[2018-03-10] MEDS: ENOXAPARIN 30 MG/0.3 ML SYRINGE SUBCUT SCH (17:48)
[2018-03-10] MEDS: DOCUSATE SODIUM 100 MG CAPSULE PO SCH (20:40)
[2018-03-10] MEDS ORDERED: APIXABAN 2.5 MG TABLET PO SCH (21:00)
[2018-03-11] MEDS: OFLOXACIN 0.3% OPH SOLN 10 ML BOTTLE LEFT EYE SCH ×6 (01:20→21:31)
[2018-03-11 04:26] LABS: Basophils % 0.3 % (0.0-0.8); Eosinophils % 0.3 % (0.00-10.9); Hematocrit 34.9 VOL% (35.7-47.0); Hemoglobin 10.9 GM/DL (12.0-16.0); Immature Granulocytes % 0.9 %; Immature Granulocytes Absolute 0.06 #; Lymphocytes # 0.8 10*3/uL (1.4-4.0); Lymphocytes % 12.3 % (21.3-54.2); Mean Corpuscular HGB Conc 31.2 GM/DL (32-36); Mean Corpuscular Hemoglobin 27 PG (27-34); Mean Corpuscular Volume 86.4 FL (87-102); Mean Platelet Volume 9.7 FL (9.6-12.0); Monocytes # 0.4 10*3/uL (0.11-0.8); Monocytes % 6.3 % (1.7-12.7); Neutrophils # 5.3 10*3/uL (1.4-7.4); Neutrophils % 79.9 % (38.7-73.9); Platelet Count 274 T/CUMM (130-400); Red Blood Count 4.04 MC/CUMM (3.8-5.5); Red Cell Distribution Width 14.6 % (9.3-17.3); White Blood Count 6.7 T/CUMM (4-12)
[2018-03-11 04:54] LABS: Free T4 (Free Thyroxine) 1.04 NG/DL (0.76-1.46); Thyroid Stimulating Hormone 3.69 uIU/ml (0.358-3.74)
[2018-03-11 04:55] LABS: Risk Ratio 2.94
[2018-03-11] MEDS: SODIUM CHLORIDE 0.9% 1,000 ML IV SCH ×2 (05:23→13:59)
[2018-03-11] MEDS: ASPIRIN EC 81 MG TABLET PO SCH (08:13)
[2018-03-11] MEDS: PANTOPRAZOLE 40 MG TABLET PO SCH (08:13)
[2018-03-11] MEDS: DOCUSATE SODIUM 100 MG CAPSULE PO SCH ×2 (08:13→21:30)
[2018-03-11] MEDS: POLYETHYLENE GLYCOL POWDER 17 GM PACK PO SCH (08:14)
[2018-03-11 09:32] LABS: Calcium 7.9 MG/DL (8.5-10.1); Osmolality,Calculated 285.4 MOS/KG (273-304); Potassium 3.3 MMOL/L (3.5-5.1)
[2018-03-11] MEDS ORDERED: BISACODYL 5 MG TABLET PO ONE (09:48)
[2018-03-11] MEDS ORDERED: MAGNESIUM HYDROXIDE SUSP 30 ML UDCUP PO ONE (09:51)
[2018-03-11] MEDS ORDERED: POTASSIUM CHLORIDE 20 MEQ TABLET PO PRN (09:53)
[2018-03-11] MEDS ORDERED: POTASSIUM CHLORIDE 20 MEQ TABLET PO ONE (13:00)
[2018-03-11] MEDS: DILTIAZEM CD 240 MG CAPSULE PO SCH (13:07)
[2018-03-11] MEDS: cefTRIAXone 1,000 MG in SYRINGE 1 EACH IV SCH (13:08)
[2018-03-11] MEDS: dilTIAZem Drip 125 MG/125 ML PREMIX IV SCH ×2 (13:16→23:47)
[2018-03-11] MEDS: ASCORBIC ACID 500 MG TABLET PO SCH ×2 (13:44→21:31)
[2018-03-11] MEDS: POTASSIUM CHLORIDE RIDER 10 MEQ in PREMIX 1 EACH IV SCH ×2 (13:45→15:04)
[2018-03-11] MEDS: ENOXAPARIN 30 MG/0.3 ML SYRINGE SUBCUT SCH (16:03)
[2018-03-12] MEDS: OFLOXACIN 0.3% OPH SOLN 10 ML BOTTLE LEFT EYE SCH ×6 (02:33→21:43)
[2018-03-12 04:25] LABS: Basophils % 0.3 % (0.0-0.8); Eosinophils # 0.1 10*3/uL (0.0-0.87); Eosinophils % 0.8 % (0.00-10.9); Hematocrit 34.3 VOL% (35.7-47.0); Hemoglobin 10.5 GM/DL (12.0-16.0); Immature Granulocytes % 1.1 %; Immature Granulocytes Absolute 0.08 #; Lymphocytes # 0.7 10*3/uL (1.4-4.0); Lymphocytes % 10.3 % (21.3-54.2); Mean Corpuscular HGB Conc 30.6 GM/DL (32-36); Mean Corpuscular Hemoglobin 27 PG (27-34); Mean Corpuscular Volume 87.1 FL (87-102); Mean Platelet Volume 9.6 FL (9.6-12.0); Monocytes # 0.4 10*3/uL (0.11-0.8); Monocytes % 5.4 % (1.7-12.7); Neutrophils # 5.8 10*3/uL (1.4-7.4); Neutrophils % 82.1 % (38.7-73.9); Platelet Count 300 T/CUMM (130-400); Red Blood Count 3.94 MC/CUMM (3.8-5.5); White Blood Count 7.1 T/CUMM (4-12)
[2018-03-12 04:45] LABS: Calcium 7.8 MG/DL (8.5-10.1); Osmolality,Calculated 285.3 MOS/KG (273-304); Potassium 3.8 MMOL/L (3.5-5.1)
[2018-03-12] MEDS: SODIUM CHLORIDE 0.9% 1,000 ML IV SCH ×3 (05:49→21:44)
[2018-03-12] MEDS: dilTIAZem Drip 125 MG/125 ML PREMIX IV SCH (10:20)
[2018-03-12] MEDS: ASCORBIC ACID 500 MG TABLET PO SCH ×2 (10:59→21:37)
[2018-03-12] MEDS: ASPIRIN EC 81 MG TABLET PO SCH (10:59)
[2018-03-12] MEDS: DILTIAZEM CD 240 MG CAPSULE PO SCH ×2 (11:00→21:37)
[2018-03-12] MEDS: DOCUSATE SODIUM 100 MG CAPSULE PO SCH ×2 (11:01→21:37)
[2018-03-12] MEDS: PANTOPRAZOLE 40 MG TABLET PO SCH (11:01)
[2018-03-12] MEDS: POLYETHYLENE GLYCOL POWDER 17 GM PACK PO SCH (11:02)
[2018-03-12] MEDS ORDERED: POTASSIUM CHLORIDE 20 MEQ TABLET PO ONE (11:16)
[2018-03-12] MEDS: cefTRIAXone 1,000 MG in SYRINGE 1 EACH IV SCH (13:15)
[2018-03-12] MEDS ORDERED: oxyCODONE IR 5 MG TABLET PO PRN (14:57)
[2018-03-12] MEDS: ENOXAPARIN 30 MG/0.3 ML SYRINGE SUBCUT SCH (16:39)
[2018-03-12] MEDS ORDERED: DILTIAZEM CD 240 MG CAPSULE PO SCH (21:00)
[2018-03-13] MEDS: OFLOXACIN 0.3% OPH SOLN 10 ML BOTTLE LEFT EYE SCH ×6 (00:40→21:09)
[2018-03-13 04:52] LABS: Basophils % 0.3 % (0.0-0.8); Eosinophils # 0.1 10*3/uL (0.0-0.87); Eosinophils % 1.3 % (0.00-10.9); Hematocrit 36.3 VOL% (35.7-47.0); Immature Granulocytes Absolute 0.07 #; Lymphocytes # 0.8 10*3/uL (1.4-4.0); Lymphocytes % 10.9 % (21.3-54.2); Mean Corpuscular HGB Conc 30.3 GM/DL (32-36); Mean Corpuscular Hemoglobin 27 PG (27-34); Mean Corpuscular Volume 88.5 FL (87-102); Mean Platelet Volume 9.1 FL (9.6-12.0); Monocytes # 0.5 10*3/uL (0.11-0.8); Monocytes % 6.6 % (1.7-12.7); Neutrophils # 5.5 10*3/uL (1.4-7.4); Neutrophils % 79.9 % (38.7-73.9); Platelet Count 304 T/CUMM (130-400); Red Cell Distribution Width 15.6 % (9.3-17.3); White Blood Count 6.9 T/CUMM (4-12)
[2018-03-13 05:11] LABS: Osmolality,Calculated 282.3 MOS/KG (273-304); Potassium 4.3 MMOL/L (3.5-5.1)
[2018-03-13] MEDS: SODIUM CHLORIDE 0.9% 1,000 ML IV SCH ×2 (06:02→21:10)
[2018-03-13] MEDS: dilTIAZem Drip 125 MG/125 ML PREMIX IV SCH (06:03)
[2018-03-13] MEDS: DOCUSATE SODIUM 100 MG CAPSULE PO SCH ×2 (08:49→21:07)
[2018-03-13] MEDS: ASCORBIC ACID 500 MG TABLET PO SCH ×2 (08:49→21:07)
[2018-03-13] MEDS: PANTOPRAZOLE 40 MG TABLET PO SCH (08:49)
[2018-03-13] MEDS: ASPIRIN EC 81 MG TABLET PO SCH (08:49)
[2018-03-13] MEDS: DILTIAZEM CD 240 MG CAPSULE PO SCH ×2 (08:50→21:07)
[2018-03-13] MEDS: POLYETHYLENE GLYCOL POWDER 17 GM PACK PO SCH (08:50)
[2018-03-13] MEDS: cefTRIAXone 1,000 MG in SYRINGE 1 EACH IV SCH (13:01)
[2018-03-13] MEDS: METOPROLOL TARTRATE 25 MG TABLET PO SCH (13:02)
[2018-03-13] MEDS ORDERED: MAGNESIUM CITRATE 300 ML BOTTLE PO ONE (13:14)
[2018-03-13] MEDS: APIXABAN 2.5 MG TABLET PO SCH (21:07)
[2018-03-14] MEDS: OFLOXACIN 0.3% OPH SOLN 10 ML BOTTLE LEFT EYE SCH ×6 (00:32→20:12)
[2018-03-14 04:48] LABS: Basophils % 0.3 % (0.0-0.8); Eosinophils # 0.1 10*3/uL (0.0-0.87); Hemoglobin 11.8 GM/DL (12.0-16.0); Immature Granulocytes % 0.7 %; Immature Granulocytes Absolute 0.04 #; Lymphocytes # 0.6 10*3/uL (1.4-4.0); Mean Corpuscular HGB Conc 31.1 GM/DL (32-36); Mean Corpuscular Hemoglobin 27 PG (27-34); Mean Corpuscular Volume 87.8 FL (87-102); Mean Platelet Volume 9.5 FL (9.6-12.0); Monocytes # 0.4 10*3/uL (0.11-0.8); Monocytes % 6.9 % (1.7-12.7); Neutrophils # 4.9 10*3/uL (1.4-7.4); Neutrophils % 81.1 % (38.7-73.9); Platelet Count 342 T/CUMM (130-400); Red Blood Count 4.33 MC/CUMM (3.8-5.5); Red Cell Distribution Width 15.8 % (9.3-17.3)
[2018-03-14 05:07] LABS: Calcium 8.1 MG/DL (8.5-10.1); Osmolality,Calculated 279.5 MOS/KG (273-304); Potassium 3.9 MMOL/L (3.5-5.1)
[2018-03-14] MEDS: METOPROLOL TARTRATE 25 MG TABLET PO SCH (09:24)
[2018-03-14] MEDS: APIXABAN 2.5 MG TABLET PO SCH ×2 (09:24→20:12)
[2018-03-14] MEDS: ASCORBIC ACID 500 MG TABLET PO SCH ×2 (09:25→20:12)
[2018-03-14] MEDS: PANTOPRAZOLE 40 MG TABLET PO SCH (09:25)
[2018-03-14] MEDS: DILTIAZEM CD 240 MG CAPSULE PO SCH ×2 (09:25→20:11)
[2018-03-14] MEDS: ASPIRIN EC 81 MG TABLET PO SCH (09:25)
[2018-03-14] MEDS: DOCUSATE SODIUM 100 MG CAPSULE PO SCH ×2 (09:25→20:11)
[2018-03-14] MEDS: POLYETHYLENE GLYCOL POWDER 17 GM PACK PO SCH (09:31)
[2018-03-14] MEDS: POTASSIUM CHLORIDE 10 MEQ TABLET PO SCH (11:15)
[2018-03-14] MEDS: cefTRIAXone 1,000 MG in SYRINGE 1 EACH IV SCH (11:16)
[2018-03-14] MEDS: dilTIAZem Drip 125 MG/125 ML PREMIX IV SCH (11:29)
[2018-03-14] MEDS: SODIUM CHLORIDE 0.9% 1,000 ML IV SCH (11:29)
[2018-03-15] MEDS: OFLOXACIN 0.3% OPH SOLN 10 ML BOTTLE LEFT EYE SCH ×3 (00:16→09:26)
[2018-03-15] MEDS: SODIUM CHLORIDE 0.9% 1,000 ML IV SCH (01:30)
[2018-03-15 05:28] LABS: Basophils % 0.3 % (0.0-0.8); Eosinophils # 0.1 10*3/uL (0.0-0.87); Eosinophils % 0.8 % (0.00-10.9); Hematocrit 36.5 VOL% (35.7-47.0); Hemoglobin 11.3 GM/DL (12.0-16.0); Immature Granulocytes % 0.8 %; Immature Granulocytes Absolute 0.05 #; Lymphocytes # 0.7 10*3/uL (1.4-4.0); Lymphocytes % 11.1 % (21.3-54.2); Mean Corpuscular Hemoglobin 27 PG (27-34); Mean Corpuscular Volume 87.5 FL (87-102); Mean Platelet Volume 9.3 FL (9.6-12.0); Monocytes # 0.4 10*3/uL (0.11-0.8); Monocytes % 6.3 % (1.7-12.7); Neutrophils # 5.3 10*3/uL (1.4-7.4); Neutrophils % 80.7 % (38.7-73.9); Platelet Count 337 T/CUMM (130-400); Red Blood Count 4.17 MC/CUMM (3.8-5.5); White Blood Count 6.6 T/CUMM (4-12)
[2018-03-15 05:48] LABS: Calcium 8.5 MG/DL (8.5-10.1); Potassium 4.2 MMOL/L (3.5-5.1)
[2018-03-15] MEDS: dilTIAZem Drip 125 MG/125 ML PREMIX IV SCH (06:10)
[2018-03-15 08:37] VITALS: BP 132/74
[2018-03-15] MEDS: POLYETHYLENE GLYCOL POWDER 17 GM PACK PO SCH (09:27)
[2018-03-15] MEDS: DILTIAZEM CD 240 MG CAPSULE PO SCH (09:27)
[2018-03-15] MEDS: METOPROLOL TARTRATE 25 MG TABLET PO SCH (09:27)
[2018-03-15] MEDS: DOCUSATE SODIUM 100 MG CAPSULE PO SCH (09:27)
[2018-03-15] MEDS: ASCORBIC ACID 500 MG TABLET PO SCH (09:27)
[2018-03-15] MEDS: ASPIRIN EC 81 MG TABLET PO SCH (09:28)
[2018-03-15] MEDS: PANTOPRAZOLE 40 MG TABLET PO SCH (09:28)
[2018-03-15] MEDS: POTASSIUM CHLORIDE 10 MEQ TABLET PO SCH (09:28)
[2018-03-15] MEDS: APIXABAN 2.5 MG TABLET PO SCH (09:28)
[2018-03-17] MEDS ORDERED: NON-FORMULARY MEDICATION (Alendronate [Fosamax] 70 MG) PO SCH (07:30)
== END 2018-03-15 11:55 | disposition home or self-care (01) | DRG 309 ==
LOC: N.EDINP 06:26 → N.ED 06:26 → N.TELES 12:23
PROVIDERS: ADMIT Internal Medicine; ATTEND Internal Medicine